=== PATIENT | male | born 1950 ===

== ENCOUNTER 2023-11-17 03:03 | Outpatient (CLI) | payer MEDICARE, SELFPAY ==
--- NOTE | 2023-11-17 | DI.NM_ITS ---
Exam(s) NM BONE SCAN WHOLE BODY GRP EXAM: CT BONE SCAN WHOLE BODY GRP CLINICAL HISTORY: RESTAGING METASTATIC PROSTATE CA, C61, C79.51. TECHNIQUE: Injected Dose: 26 mCi Tc-99m MDP Delayed Images: 2-3 hours. Whole body images and oblique views of the pelvis. COMPARISON: No exams were available for comparison FINDINGS: Symmetric axial uptake. Bilateral renal excretion is identified. No focal area of intense suspicious uptake is seen. Contrast is noted in urinary bladder. This obscures visualization of the lower sac rum. IMPRESSION: 1. No evidence of metastatic disease. DATA REPOSITORY:
== END 2023-11-17 03:23 ==
PROVIDERS: Visit Provider Nurse Practitioner
DX: C61 Malignant neoplasm of prostate (principal); C79.51 Secondary malignant neoplasm of bone
CPT/HCPCS: 78306